=== PATIENT | male | born 1950 | race Caucasian/White ===

== ENCOUNTER → 2017-11-14 | Outpatient (CLI) | payer BC, OTHER ==
[~2017-11-14] MED LIST: ALPH300C PO; ASPEC81 PO; ATOR10TA82 PO; B COCAP3; BNC20 PO; BROM0.8T PO; CHOL20009 PO; CHRO500T4 PO; CINN1CAP2 PO; COEN1CAP7 PO; CRG625 PO; ECHI400C11 PO; EXEN0.048 SQ; FINA1TAB36 PO; FURO20TA PO; INSDGI SQ; INSU100I SQ; LORC1TAB PO; MAGNTAB4 PO; METF850T10 PO; OMEG10007 PO; RQP/5 PO; SPR25; ZINC30TA3 PO
--- NOTE | 2017-11-14 10:26 | DIAGNOSTIC IMAGING REPORT ---
LEFT THUMB 3 VIEWS HISTORY: LEFT THUMB MASSES COMPARISON: None. FINDINGS: No acute fracture or dislocation. Soft tissues are unremarkable. No radiopaque foreign bodies. A few periarticular ossific densities seen within the first MCP joint and interphalangeal joint of the thumb. This likely represents a combination of sesamoid bones and intra-articular loose bodies from old small fractures. IMPRESSION: A few periarticular ossific densities seen within the first MCP joint and interphalangeal joint of the thumb. This likely represents a combination of sesamoid bones and intra-articular loose bodies from old small fractures. Electronically signed by: Mark Cordova M.D. 11/14/2017 10:25 AM Dictated Date/Time: 11/14/2017 10:23 AM
== END | disposition home or self-care (01) ==
LOC: C.RDSM 17:19
PROVIDERS: ATTEND Family Medicine
DX: R22.9 Localized swelling, mass and lump, unspecified (principal)

== ENCOUNTER 2025-04-21 17:57 | Inpatient (IN) ==
--- NOTE | 2025-04-21 18:52 | Emergency Department Note ---
Impression & Plan Generalized weakness, COVID-19, Atrial fibrillation with rapid ventricular response ED Provider Note HISTORY OF PRESENT ILLNESS: Patient is a 74-year-old male presenting with generalized weakness. Patient reports he has been feeling generally unwell for the last 48 to 72 hours. He had an appoint with his primary care provider today and had a positive COVID test. Patient reports that he has had subjective chills at home with the weakness. Denies any abdominal pain, nausea or vomiting. Denies any chest pain or significant shortness of breath. Denies any cough. He reports some nasal congestion. He denies any recent falls but was so weak that he had to lower himself onto the ground and he called 911. Patient is on Eliquis. Denies any DVT or PE history. ROS: as above PHYSICAL EXAM: Constitutional: Patient appears in no acute distress. HENT: Head: Normocephalic and atraumatic. Eyes: EOMI, PERRL Mouth/Throat: Mucous membranes moist. Neck: Trachea midline. Neck supple. Cardiovascular: Tachycardic with irregularly irregular rhythm. No murmurs, rubs or gallops. Intact distal pulses. Pulmonary/Chest: No respiratory distress. Breath sounds clear and equal bilaterally. No wheezes or rales. Abdominal: Abdomen soft, no tenderness, rebound or guarding. Musculoskeletal: No edema, tenderness or deformity noted. Skin: Warm and dry. No rash, erythema, pallor or cyanosis Psychiatric: Appropriate mood and affect for situation. Neurological: Alert and keenly responsive. CN II-XII grossly intact, moving all extremities equally and fully. MDM: - Vitals signs showed tachypnea, tachycardia and fever. - History obtained via patient. History as above. - Chronic conditions affecting care: HTN; HLD; DM-2; Afib; NIEVES - Differential diagnoses include, but are not limited to: Pneumonia; viral syndrome; ACS; dysrhythmia; UTI - Order placed for continuous cardiac monitoring. At this time, monitor showed rate of 82 bpm with irregular rhythm, per my interpretation. - External medical records reviewed. Nephrology office visit note dated 03/29/2025 was reviewed. Patient follows in their clinic for his CKD. Baseline creatinine is 1.7-1.8. - EKG image interpreted by myself showed atrial fibrillation. Rate tachycardic at 151 bpm. QT 300. No acute ischemic changes. - Patient givne 20 mg IV cardizem in ER. Heart rate now in the 70s-80s irregular. - Laboratory workup interpreted by myself showed normal WBC; normal PT/INR; stable electrolytes; elevated total bilirubin (2.2); CKD (1.54); normal AST/ALT; normal lipase; normal troponin - Viral swab positive for COVID 19 - CXR image reviewed interpreted by myself is negative for pneumonia, per my interpretation. - Patient given 20 mg IV cardizem with improvement in heart rate. Given 1g IV tylenol for fever in ER. - Patient reports feeling significantly unwell and too weak at home. Likely secondary to his viral illness, as his heart rate is significantly improved. - Discussion was had with manager case about patient's case and need for admission - Hospitalist consulted for admission - [facility] ASSESSMENT AND PLAN: Diagnosis: COVID-19; A-fib with RVR; generalized weakness Plan: Admit Past Med/Surg History Problem List (Updated 04/22/25 @ 01:05 by Loni Syed MD) Atrial fibrillation with rapid ventricular response (Acute) COVID-19 (Acute) Generalized weakness (Acute) Elevated bilirubin Weakness COVID Lower urinary tract symptoms BPH with obstruction/lower urinary tract symptoms Loss of protective sensation of skin of foot Obesity, morbid, BMI 40.0-49.9 (Chronic) NIEVES on CPAP (Chronic) Diabetes type 2, uncontrolled (Chronic) Colon polyp (Chronic) Nocturia (Chronic) Intermittent atrial fibrillation follows with Dr Laura Elevated TSH (Chronic) no current medications - borderline Gender dysphoria in adult Diabetic nephropathy associated with type 2 diabetes mellitus (Chronic) Diabetic retinopathy associated with uncontrolled type 2 diabetes mellitus (Chronic) stable Vitamin D deficiency Stage 3b chronic kidney disease BPH (benign prostatic hyperplasia) (Chronic) Hypertension (Chronic) Hyperlipidemia (Chronic) Medical History Amblyopia, right eye History of gout Colon polyp Diabetes mellitus, type 2 IDDM Sleep apnea cpap Surgical History History of cataract surgery bilateral History of hand surgery finger fx Status post left foot surgery broken toe sx History of colonoscopy with polypectomy History of wisdom tooth extraction Family History Mother Family history of diabetes mellitus Other No family history of adverse response to anesthesia Social History Smoking Status: Former smoker Tobacco Type: Cigars Age Started Using Tobacco: 29; Age Quit Using Tobacco: 37; Second 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); Do You Dip or Chew Tobacco: No; Hx Alcohol Use: Yes Alcohol type: beer and wine Alcohol Intake Frequency: Monthly or Less Hx Substance Use: No Preferred Language: Tamaz[place] Communication Ability: Effective Visual Impairment: Limited Hearing Ability: Normal 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 Operator Required: No Beliefs That Will Affect Care: None marital status: Single Current Living Situation: Alone current occupational status: retired 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 Feels Safe at Home: Yes Diet: low carbohydrate and low salt Diet Comment: trying to watch salt and carbs caffeine: Yes (2 cups daily) Physical Activity Frequency: Does not Exercise Do you think of yourself as: straight/heterosexual Gender Identity: Male Assistive Devices: CPAP and Glasses Allergies Allergies Allergy/AdvReac Type Severity Reaction Status Date / Time Penicillins Allergy Intermediate "caused a Verified 04/21/25 20:34 lump in me where they injected it" liraglutide [From Saxenda] AdvReac Intermediate Nausea/vomi Verified 04/21/25 20:34 tting Home Meds Home Medications Medication Instructions Recorded Confirmed allopurinol 100 mg tablet 200 mg PO HS 08/31/19 04/21/25 allopurinol 300 mg tablet 300 mg PO QAM 08/31/19 04/21/25 alpha lipoic acid 300 mg capsule 300 mg PO BID 08/31/19 04/21/25 aspirin 81 mg tablet,delayed 81 mg PO Q2D 08/31/19 04/21/25 release (Ly Low Dose Aspirin) atorvastatin 10 mg tablet 10 mg PO HS 08/31/19 04/21/25 cinnamon bark 500 mg capsule 500 mg PO BID 08/31/19 04/21/25 (Cinnamon) coenzyme Q10 200 mg capsule (Co 200 mg PO BID 08/31/19 04/21/25 Q-10) spironolactone 25 mg tablet 12.5 mg PO QAM 08/31/19 04/21/25 magnesium chloride 64 mg 64 mg PO TID 05/18/20 04/21/25 (magnesium chloride) tablet,delayed release (Mag 64) zinc 22 mg tablet 22 mg PO QAM 05/18/20 04/21/25 chromium picolinate 500 mcg PO BID 09/12/20 04/21/25 colchicine 0.6 mg capsule 0.6 mg PO DAILY PRN gout flare up 10/24/20 04/21/25 sodium chloride 5 % eye drops 1 drp ophthalmic (eye) HS 01/23/21 04/21/25 (Mayito 128) olmesartan 5 mg tablet 5 mg PO QAM 02/22/23 04/21/25 psyllium husk 3.4 gram/5.4 gram 1 tbsp PO TID PRN ud 03/26/23 04/21/25 oral powder (Metamucil) estradiol 0.1 mg/24 hr semiweekly 1 patch transdermal 2XWK 07/31/24 04/21/25 transdermal patch cholecalciferol (vitamin D3) 125 125 mcg PO DAILY 04/21/25 04/21/25 mcg (5,000 unit) tablet (Vitamin D3) insulin lispro 100 unit/mL 0 sliding scale dose subcut TIDM 04/21/25 04/21/25 subcutaneous pen (Humalog KwikPen (U-100) Insulin) Previous Rx's Medication Instructions Recorded OneTouch Verio Reflect Meter #1 ea 02/22/23 (blood-glucose meter) apixaban 5 mg tablet (Eliquis) 5 mg PO BID #60 tabs 10/31/23 metoprolol tartrate 25 mg tablet 25 mg PO BID #60 tabs 10/31/23 blood sugar diagnostic (OneTouch #400 ea 12/02/23 Verio test strips) pen needle, diabetic 31 gauge x #500 ea 12/02/23 5/16" (BD Ultra-Fine Short Pen Needle) empagliflozin 25 mg tablet 25 mg PO QAM #90 tabs 05/26/24 insulin degludec 200 unit/mL (3 90 unit (0.45 mL) subcut HS #45 mL 06/29/24 mL) subcutaneous pen (Tresiba FlexTouch U-200 insulin) semaglutide 14 mg tablet (Rybelsus) 14 mg PO QAM #90 tabs 06/29/24 metformin 850 mg tablet 850 mg PO BID #180 tabs 08/17/24 finasteride 5 mg tablet 5 mg PO QAM #90 tabs 03/19/25 tamsulosin 0.4 mg capsule 0.4 mg PO QAM #90 caps 03/19/25 Results & Data (ED) Vital Signs Vital Signs - 24 hr 04/21/25 18:01 04/21/25 18:24 04/21/25 18:27 Temperature 38.0 C H Temperature Source Oral Pulse Rate 140 H 135 H Pulse Rate [Apical] Respiratory Rate 25 H Blood Pressure 140/63 Blood Pressure [Right Arm] Blood Pressure Mean 88 Blood Pressure Mean [Right Arm] Blood Pressure Position Semi-fowlers Pulse Oximetry 95 Oxygen Delivery Method Room Air Room Air Sepsis Recent Fever Within 48 Hours No Sepsis New/Unexplained Change in Mental Status No Sepsis Action Taken by Nursing Physician Notified 04/21/25 18:56 04/21/25 20:00 Temperature 37.3 C Temperature Source Oral Pulse Rate Pulse Rate [Apical] 80 114 H Respiratory Rate 18 18 Blood Pressure Blood Pressure [Right Arm] 135/76 128/73 Blood Pressure Mean Blood Pressure Mean [Right Arm] 95 91 Blood Pressure Position Pulse Oximetry 99 97 Oxygen Delivery Method Room Air Sepsis Recent Fever Within 48 Hours Sepsis New/Unexplained Change in Mental Status Sepsis Action Taken by Nursing Laboratory Data 04/21/25 18:19 04/21/25 18:19 Lab Results 04/21/25 Range/Units 18:19 WBC 8.98 (4.8-10.8) K/ul RBC 4.83 (4.70-6.10) M/uL Hgb 15.8 (14.0-18.0) g/dl Hct 43.6 (42.0-52.0) % MCV 90.3 (80.0-100.0) fL MCH 32.7 (25.0-34.0) pg MCHC 36.2 H (32.0-36.0) g/dL RDW Std Deviation 47.9 H (36.4-46.3) fL RDW Coeff of [place] 14.6 H (11.5-14.5) % Plt Count 221 (130-400) K/uL MPV 10.5 (9.4-12.4) fL Immature Gran % (Auto) 0.8 % Neut % (Auto) 85.1 % Lymph % (Auto) 2.1 % [place] % (Auto) 10.7 % Eos % (Auto) 0.6 % Baso % (Auto) 0.7 % Neut # (Auto) 7.65 H (1.40-6.50) K/uL Lymph # (Auto) 0.19 L (1.20-3.40) K/uL [place] # (Auto) 0.96 H (0.11-0.59) K/uL Eos # (Auto) 0.05 (0.00-0.50) K/uL Baso # (Auto) 0.06 (0.00-0.20) K/uL Immature Gran # (Auto) 0.07 (0.01-0.20) K/uL PT 11.4 (9.0-12.0) Seconds INR 1.1 (0.9-1.1) Sodium 140 (136-145) mmol/L Potassium 4.1 (3.5-5.1) mmol/L Chloride 107 (98-107) mmol/L Carbon Dioxide 21 (21-32) mmol/L Anion Gap 12 H (3-11) BUN 19 (6-23) mg/dl Creatinine 1.54 H (0.6-1.4) mg/dl Est Cr Clr Drug Dosing 57.0 ml/min eGFR 47.63 BUN/Creatinine Ratio 12.3 (10-20) Glucose 156 H (70-99(Fasting)) mg/dl Calcium 9.1 (8.6-10.3) mg/dl Total Bilirubin 2.2 H (0.2-1.0) mg/dl AST 17 (13-39) U/L ALT 17 (7-52) U/L Alkaline Phosphatase 67 (34-104) U/L Troponin I High Sens 16.3 (0-20) pg/ml Total Protein 7.2 (6.0-8.3) gm/dl Albumin 4.3 (3.4-5.0) gm/dl Globulin 2.9 (2.5-4.0) gm/dl Albumin/Globulin Ratio 1.5 (0.9-2) Lipase 12 (11-82) U/L SARS-CoV-2 (PCR) POSITIVE A (Negative) Influenza Type A (PCR) Negative (Neg) Influenza Type B (PCR) Negative (Neg) RSV (RT-PCR) Negative (Neg) Administered Medications Discontinued Medications Diltiazem HCl (Diltiazem Hcl 5 Mg/Ml 5 Ml Vial) 20 mg IV NOW STA Stop: 04/21/25 18:31 Last Admin: 04/21/25 18:45 Dose: 20 mg Documented By: MARIN Co-signed By: TDBasilia Acetaminophen (Ofirmev) 1,000 mg in 100 mls @ 400 mls/hr IV NOW STA Stop: 04/21/25 19:04 Last Infusion: 04/21/25 19:19 Dose: Infused Documented By: Admin: 04/21/25 19:00 Dose: 400 mls/hr Documented By: MAIRN Imaging Data Radiologist's Impression: Chest X-Ray 04/21/25 18:24 Clinical History: Chest pain Technique: 2 frontal views of the chest were obtained Findings: There are no confluent pulmonary infiltrates. The heart size is within normal limits. No pleural effusion or pneumothorax is seen. There is no definite pulmonary nodule. No fracture is noted. No foreign body is seen Impression: No active disease Electronically signed by Tommy Giang 04-21-2025 7:34 PM Discharge Plan Visit Data Chief Complaint: Illness Stated Complaint: COVID + ED Provider: Loin Syed Discharge Problem: Generalized weakness, COVID-19, Atrial fibrillation with rapid ventricular response Condition: Fair
[2025-04-21] MEDS: ACETAMINOPHEN 1,000 MG/100 ML VIAL IV STA (19:00)
[2025-04-21 19:02] LABS: Hematocrit (blood only) 43.6 % (42.0-52.0); Hemoglobin 15.8 g/dl (14.0-18.0); Immature Granulocytes # (auto) 0.07 K/uL (0.01-0.20); Immature Granulocytes % (auto) 0.8 %; Mean Corpuscular Hemoglobin 32.7 pg (25.0-34.0); Mean Corpuscular Volume 90.3 fL (80.0-100.0); Platelet Count 221 K/uL (130-400); RDW Standard Deviation 47.9 fL (36.4-46.3); Red Blood Count 4.83 M/uL (4.70-6.10); White Blood Count 8.98 K/ul (4.8-10.8)
[2025-04-21 19:24] LABS: Alanine Aminotransferase 17.0 U/L (7-52); Albumin Globulin Ratio 1.5 (0.9-2); Albumin Level 4.3 gm/dl (3.4-5.0); Alkaline Phosphatase 67.0 U/L (34-104); Anion Gap 12.0 (3-11); Bilirubin,Total 2.2 mg/dl (0.2-1.0); Blood Urea Nitrogen 19.0 mg/dl (6-23); Calcium 9.1 mg/dl (8.6-10.3); Carbon Dioxide 21.0 mmol/L (21-32); Chloride 107.0 mmol/L (98-107); Creatinine Clr Calc Pharmacy 57.0 ml/min; Globulin 2.9 gm/dl (2.5-4.0); Glucose 156.0 mg/dl (70-99(Fasting)); Lipase 12.0 U/L (11-82); Potassium 4.1 mmol/L (3.5-5.1); Sodium 140.0 mmol/L (136-145); Total Protein 7.2 gm/dl (6.0-8.3)
--- NOTE | 2025-04-21 19:34 | XRay Report ---
Clinical History: Chest pain Technique: 2 frontal views of the chest were obtained Findings: There are no confluent pulmonary infiltrates. The heart size is within normal limits. No pleural effusion or pneumothorax is seen. There is no definite pulmonary nodule. No fracture is noted. No foreign body is seen Impression: No active disease Electronically signed by Tommy Giang 04-21-2025 7:34 PM
[2025-04-21 19:40] LABS: INR 1.1 (0.9-1.1); Prothrombin Time 11.4 Seconds (9.0-12.0)
[2025-04-21 19:44] LABS: Influenza A virus by PCR Negative (Neg); Influenza B virus by PCR Negative (Neg); SARS CoV2 RNA(COVID-19) Ceph POSITIVE (Negative)
--- NOTE | 2025-04-21 20:58 | History & Physical Report ---
Date of Service April 21, 2025 Assessment & Plan (1) COVID: (2) Weakness: (3) Elevated bilirubin: (4) Diabetes mellitus, type 2: Plan 74-year-old male PMHx HTN, HLD, BPH, CKD stage IIIb, vitamin D deficiency, T2DM, intermittent A-fib, and NIEVES on CPAP presenting for weakness. ED course reveals overall stable labs with slight AG 12, creatinine 1.54, glucose 156 and bilirubin 2.2. He is COVID-positive. CXR is without acute findings. #COVID/Weakness COVID 19 diagnosed on admission. No hypoxia, no wheezing. Pt overall feels too weak to go home, was unable to get himself up by himself the day of arrival due to weakness. Suspect weakness 2/2 COVID infection. Possible exposure at [employer]. Has had 4 COVID vaccines total. - CBC overall WNL; CMP AG 12, Cr 1.54, bili 2.2 - BMP am - CXR no acute findings - IS q1hr - No O2 at baseline, CPAP HS; O2 prn - wean as tolerated (if needed) - Fall precautions, COVID precautions - DuoNebs [facility] - PT/OT ordered - appreciate assistance #Afib w/ RVR H/o Afib, on Eliquis and metoprolol; Likely 2/2 presence of illness. Received Cardizem 20mg IV in ED and converted to NSR, rate controlled at time of admission. - CBC stable, CMP Cr 1.54, TSH pending - EKG Afib @ 151 bpm initially; rate now 70s-80s - Continue home meds - Eliquis, metoprolol - Monitor on tele #Elevated bilirubin No abdominal pain. - Bilirubin 2.2, AST/ALT/Alk phos WNL - No recent N/V - Repeat am #T2DM H/o DMT2; At home regimen includes Jardiance, degludec 90U HS, lispro SSI, metformin, semaglutide - Glucose on admission 156; Most recent A1C 01/2025 @ 7.3% - Hold home regimen - SSI with target BSG range 110-160mg/dL, CF 25, carb ratio 5 - Lantus 30U BID - BSG ACHS - Adjust regimen as needed #Gout- Allopurinol - continue #HLD- Atorvastatin - continue #BPH- Finasteride, tamsulosin - continue #HTN- Spironolactone, olmesartan on hold - continue #NIEVES- CPAP HS Dispo: Obs, med/tele VTE prophylaxis: On Eliquis - continue This document was dictated utilizing [employer]. Please excuse any gra mmatical errors that may be secondary to use of this software. Admission and Anticipated Discharge Date Admission Date: 04/21/2025 History of Present Illness Chief Complaint: Weakness Primary Care Provider: Adriana Mathis 74-year-old male PMHx HTN, HLD, BPH, CKD stage IIIb, vitamin D deficiency, T2DM, intermittent A-fib, and NIEVES on CPAP presenting for weakness. Patient states that the night [employer] he started to develop chills but no documented fever. He was seen by his PCP on the day of arrival and tested positive for COVID. His PCP had encouraged him to come to the ED if he started to feel worse. Patient states that he, later in the day, did start to feel worse in terms of his symptoms and states that it was so bad that he could not get out of bed or out of his chair by himself. At 1 point he had felt that he may fall over and have to fell/lowered himself to the ground and was unable to get himself back up. He called EMS who came to help assist the patient. When asked why he lowered himself to the ground, he denies feeling lightheaded or dizzy, just stating that he "ran out of power." He has had a nonproductive cough for the past 1 to 2 d ays [employer], denies additional URI symptoms. Again denies fevers. Is not short of breath. Denies chest pain, palpitations, abdominal pain, N/V/D/C, numbness/tingling, LUTS, or syncope. Patient does not use oxygen at baseline, but does utilize CPAP at night. He states that he may have possibly been exposed to COVID at [employer]. He does not have a history of documented COVID infection. He has received 4 COVID vaccines in total. ED evaluation reveals CBC without leukocytosis, stable H&H; PT/NR WNL; CMP anion gap 12, creatinine 1.54, glucose 156, bilirubin 2.2; troponin 16.3; lipase 12; COVID-positive, flu/RSV negative; CXR no active disease.; Patient received diltiazem 20 mg IV and acetaminophen 1 g IV in ED. Please see Dr. Alonzo's attestation for adjustments/additions to treatment plan. Allergies Allergy/AdvReac Type Severity Reaction Status Date / Time Penicillins Allergy Intermediate "caused a Verified 04/21/25 20:34 lump in me where they injected it" liraglutide [From Saxenda] AdvReac Intermediate Nausea/vomi Verified 04/21/25 20:34 tting Home Medications Medication Instructions Recorded Confirmed Type allopurinol 100 mg tablet 200 mg PO HS 08/31/19 04/21/25 History allopurinol 300 mg tablet 300 mg PO QAM 08/31/19 04/21/25 History alpha lipoic acid 300 mg capsule 300 mg PO BID 08/31/19 04/21/25 History aspirin 81 mg tablet,delayed 81 mg PO Q2D 08/31/19 04/21/25 History release (Ly Low Dose Aspirin) atorvastatin 10 mg tablet 10 mg PO HS 08/31/19 04/21/25 History cinnamon bark 500 mg capsule 500 mg PO BID 08/31/19 04/21/25 History (Cinnamon) coenzyme Q10 200 mg capsule (Co 200 mg PO BID 08/31/19 04/21/25 History Q-10) spironolactone 25 mg tablet 12.5 mg PO QAM 08/31/19 04/21/25 History magnesium chloride 64 mg 64 mg PO TID 05/18/20 04/21/25 History (magnesium chloride) tablet,delayed release (Mag 64) zinc 22 mg tablet 22 mg PO QAM 05/18/20 04/21/25 History chromium picolinate 500 mcg PO BID 09/12/20 04/21/25 History colchicine 0.6 mg capsule 0.6 mg PO DAILY PRN gout flare up 10/24/20 04/21/25 History sodium chloride 5 % eye drops 1 drp ophthalmic (eye) HS 01/23/21 04/21/25 History (Mayito 128) OneTouch Verio Reflect Meter #1 ea 02/22/23 03/29/25 Rx (blood-glucose meter) olmesartan 5 mg tablet 5 mg PO QAM 02/22/23 04/21/25 History psyllium husk 3.4 gram/5.4 gram 1 tbsp PO TID PRN ud 03/26/23 04/21/25 History oral powder (Metamucil) apixaban 5 mg tablet (Eliquis) 5 mg PO BID #60 tabs 10/31/23 04/21/25 Rx metoprolol tartrate 25 mg tablet 25 mg PO BID #60 tabs 10/31/23 04/21/25 Rx blood sugar diagnostic (OneTouch #400 ea 12/02/23 03/29/25 Rx Verio test strips) pen needle, diabetic 31 gauge x #500 ea 12/02/23 03/29/25 Rx 5/16" (BD Ultra-Fine Short Pen Needle) empagliflozin 25 mg tablet 25 mg PO QAM #90 tabs 05/26/24 04/21/25 Rx insulin degludec 200 unit/mL (3 90 unit (0.45 mL) subcut HS #45 mL 06/29/24 04/21/25 Rx mL) subcutaneous pen (Tresiba FlexTouch U-200 insulin) semaglutide 14 mg tablet (Rybelsus) 14 mg PO QAM #90 tabs 06/29/24 04/21/25 Rx estradiol 0.1 mg/24 hr semiweekly 1 patch transdermal 2XWK 07/31/24 04/21/25 History transdermal patch metformin 850 mg tablet 850 mg PO BID #180 tabs 08/17/24 04/21/25 Rx finasteride 5 mg tablet 5 mg PO QAM #90 tabs 03/19/25 04/21/25 Rx tamsulosin 0.4 mg capsule 0.4 mg PO QAM #90 caps 03/19/25 04/21/25 Rx cholecalciferol (vitamin D3) 125 125 mcg PO DAILY 04/21/25 04/21/25 History mcg (5,000 unit) tablet (Vitamin D3) insulin lispro 100 unit/mL 0 sliding scale dose subcut TIDM 04/21/25 04/21/25 History subcutaneous pen (Humalog KwikPen (U-100) Insulin) Past Med/Surg History Problem List (Updated 04/22/25 @ 01:05 by Loni Syed MD) Atrial fibrillation with rapid ventricular response (Acute) COVID-19 (Acute) Generalized weakness (Acute) Elevated bilirubin Weakness COVID Lower urinary tract symptoms BPH with obstruction/lower urinary tract symptoms Loss of protective sensation of skin of foot Obesity, morbid, BMI 40.0-49.9 (Chronic) NIEVES on CPAP (Chronic) Diabetes type 2, uncontrolled (Chronic) Colon polyp (Chronic) Nocturia (Chronic) Intermittent atrial fibrillation follows with Dr Laura Elevated TSH (Chronic) no current medications - borderline Gender dysphoria in adult Diabetic nephropathy associated with type 2 diabetes mellitus (Chronic) Diabetic retinopathy associated with uncontrolled type 2 diabetes mellitus (Chronic) stable Vitamin D deficiency Stage 3b chronic kidney disease BPH (benign prostatic hyperplasia) (Chronic) Hypertension (Chronic) Hyperlipidemia (Chronic) Medical History Amblyopia, right eye History of gout Colon polyp Diabetes mellitus, type 2 IDDM Sleep apnea cpap Surgical History History of cataract surgery bilateral History of hand surgery finger fx Status post left foot surgery broken toe sx History of colonoscopy with polypectomy History of wisdom tooth extraction Family History Mother Family history of diabetes mellitus Other No family history of adverse response to anesthesia Social History Smoking Status: Never smoker Tobacco Type: Cigars Age Started Using Tobacco: 29; Age Quit Using Tobacco: 37; Second 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); Do You Dip or Chew Tobacco: No; Hx Alcohol Use: No Hx Substance Use: No Preferred Language: Cymro Communication Ability: Effective Visual Impairment: Limited Hearing Ability: Normal International Organizer Required: No Beliefs That Will Affect Care: None marital status: Single Current Living Situation: Alone Current Living Situation Comment: lives in home alone current occupational status: retired 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 Other Information That Helps Us Care for You: No Feels Safe at Home: Yes Safety Concerns: Feels Safe At This Time Diet: low carbohydrate and low salt Diet Comment: trying to watch salt and carbs caffeine: Yes (2 cups daily) Physical Activity Frequency: Does not Exercise Do you think of yourself as: straight/heterosexual Gender Identity: Male Assistive Devices: Glasses Review of Systems Review of Systems: All systems reviewed & are unremarkable except as noted in Subjective Physical Exam Physical Exam: General: No acute distress Skin: Warm and dry Head: Normocephalic, atraumatic Eyes: PERRL, conjunctivae clear, sclera non-icteric ENT: External ear and ear canal without swelling; nose atraumatic; good dentition, tongue normal appearance, pharynx normal Neck: Supple, no LAD Cardio: Irregular irregular rhythm, regular rate, no M/G/R, S1 and S2 normal Resp: Dry cough, no respiratory distress, Lungs CTA in all lobes bilaterally, no wheezes, rales, or rhonchi Abdomen: Soft, symmetric, nontender; No masses or hepatosplenomegaly; Bowel sounds normoactive MSK: No deformities; pulses palpable and equal; no edema. Neuro: Awake, alert; Sensation intact bilaterally; CN grossly intact Psych: Appropriate mood and affect; good judgement and insight. Results & Data Results & Data Vital Signs (Past 12 Hours) Vital Signs Temp Pulse Pulse Resp BP BP Pulse Ox 04/21/25 18:56 80 18 135/76 99 04/21/25 18:27 135 H 04/21/25 18:24 04/21/25 18:01 38.0 C H 140 H 25 H 140/63 95 O2 Del Method 04/21/25 18:56 04/21/25 18:27 04/21/25 18:24 Room Air 04/21/25 18:01 Room Air Laboratory Results 04/21/25 18:19 WBC 8.98 RBC 4.83 Hgb 15.8 Hct 43.6 MCV 90.3 MCH 32.7 MCHC 36.2 H RDW Std Deviation 47.9 H RDW Coeff of Jordan 14.6 H Plt Count 221 MPV 10.5 Immature Gran % (Auto) 0.8 Neut % (Auto) 85.1 Lymph % (Auto) 2.1 Morgan % (Auto) 10.7 Eos % (Auto) 0.6 Baso % (Auto) 0.7 Neut # (Auto) 7.65 H Lymph # (Auto) 0.19 L Morgan # (Auto) 0.96 H Eos # (Auto) 0.05 Baso # (Auto) 0.06 Immature Gran # (Auto) 0.07 PT 11.4 INR 1.1 Sodium 140 Potassium 4.1 Chloride 107 Carbon Dioxide 21 Anion Gap 12 H BUN 19 Creatinine 1.54 H Est Cr Clr Drug Dosing 57.0 eGFR 47.63 BUN/Creatinine Ratio 12.3 Glucose 156 H Calcium 9.1 Total Bilirubin 2.2 H AST 17 ALT 17 Alkaline Phosphatase 67 Troponin I High Sens 16.3 Total Protein 7.2 Albumin 4.3 Globulin 2.9 Albumin/Globulin Ratio 1.5 Lipase 12 SARS-CoV-2 (PCR) POSITIVE A Influenza Type A (PCR) Negative Influenza Type B (PCR) Negative RSV (RT-PCR) Negative Diagnostic Findings Chest X-Ray 04/21/25 18:24 Clinical History: Chest pain Technique: 2 frontal views of the chest were obtained Findings: There are no confluent pulmonary infiltrates. The heart size is within normal limits. No pleural effusion or pneumothorax is seen. There is no definite pulmonary nodule. No fracture is noted. No foreign body is seen Impression: No active disease Electronically signed by Tommy Giang 04-21-2025 7:34 PM Medications Administered Diltiazem 20 mg IV Acetaminophen 1g IV ECG Additional Comments: A-fib with RVR, LAD, low voltage QRS 151 bpm, QRS 68, QT/QTc 300/475, PRT*/-89/5 Code Status & VTE Plan Code Status Full Supervising Physician Co-Signing Physician Notes patient seen examined, chart reviewed, case discussed with LOVELY Felipe I agree with assessment and plan as documented above. Patient with COVID-19 infection. Generalized weakness. Is not hypoxic. Nontoxic States that he is too weak to go home and is unable to get himself up Assessment/plan Supportive care. As patient is not hypoxic there is no indication for management with steroids or antivirals Remainder as above PG Care Time/CCT Total # of Minutes Spent Total Time Spent with Patient: Total time spent is greater than 50% in coordination of care (as documented) at patient's floor/unit and/or counseling patient: Coding Level of Care Code 64048 INT INP/OBS CARE 3/75MIN Diagnoses COVID U07.1 Weakness R53.1 Elevated bilirubin R17 Diabetes mellitus, type 2 E11.9
[2025-04-22] MEDS ORDERED: MAGNESIUM HYDROXIDE SUSP 30 ML UDC PO PRN (00:52)
[2025-04-22] MEDS ORDERED: CARBOHYDRATES FOR HYPOGLYCEMIA PO PRN (00:52)
[2025-04-22] MEDS ORDERED: ONDANSETRON INJ 2 MG/ML 2 ML VIAL IV PRN (00:52)
[2025-04-22] MEDS ORDERED: POLYETHYLENE (MIRALAX) 17 GM PACK PO PRN (00:52)
[2025-04-22] MEDS ORDERED: GLUCAGON FOR INJ 1 MG VIAL SQ PRN (00:52)
[2025-04-22] MEDS ORDERED: DEXTROSE 50% 50 ML SYRINGE IV PRN (00:52)
[2025-04-22] MEDS ORDERED: MELATONIN 3 MG TAB PO PRN (00:52)
[2025-04-22] MEDS ORDERED: GLUCOSE 40% GEL 15 GM TUBE PO PRN (00:52)
[2025-04-22] MEDS ORDERED: GLUCOSE 10 TAB/TUBE PO PRN (00:52)
[2025-04-22] MEDS: ALBUT/IPRATROP 3MG/0.5MG NEB 3 ML VIAL NEB SCH ×2 (01:13→05:40)
[2025-04-22] MEDS ORDERED: PSYLLIUM HUSK 4GM PACKET PO PRN (01:17)
--- NOTE | 2025-04-22 06:55 | Hospitalist Progress Note ---
Date of Service April 22, 2025 Assessment & Plan (1) Weakness: (2) Elevated bilirubin: (3) Diabetes mellitus, type 2: Plan 74-year-old male PMHx HTN, HLD, BPH, CKD stage IIIb, vitamin D deficiency, T2DM, intermittent A-fib, and NIEVES on CPAP presenting for weakness. ED course reveals overall stable labs with slight AG 12, creatinine 1.54, glucose 156 and bilirubin 2.2. He is COVID-positive. CXR is without acute findings. #COVID/Weakness COVID 19 diagnosed on admission. CXR no acute findings. No hypoxia, wheezing, or required supplemental O2 use. Continues feeling weak and hesitant to get out of bed. - IS q1hr - No O2 at baseline, CPAP HS - Fall precautions, COVID precautions - DuoNebs prn - PT/OT ordered - awaiting recommendations #Afib w/ RVR H/o Afib, on Eliquis and metoprolol; Likely 2/2 presence of illness. Received Cardizem 20mg IV in ED and rate was controlled, but remained in a-fib. HR rising to 120's this morning prior to taking metoprolol. - Continue home meds - Eliquis, metoprolol - Monitor on tele - Consider Cardizem if rate remains uncontrolled #Elevated bilirubin Continues to deny abdominal pain. Past labs dating back to 10/2023 show elevated total bilirubin in 1.3-1.6 range. - Bilirubin remains 2.2 - AST/ALT/Alk phos continues WNL - No recent N/V #T2DM H/o DMT2; At home regimen includes Jardiance, degludec 90U HS, lispro SSI, metformin, semaglutide. LAst a1c was 7.3% on 01/2025. No steroids are indicated at this time for COVID infection. BSG has been below 200 without hypoglycemic events. - Continue SSI with target BSG range 110-160mg/dL, CF 25, carb ratio 5 - Continue Lantus 30U BID - BSG ACHS - Adjust regimen as needed - Can resume home regimen upon DC #Gout- Allopurinol - continue #HLD- Atorvastatin - continue #BPH- Finasteride, tamsulosin - continue #HTN- Spironolactone, olmesartan on hold - continue #NIEVES- CPAP HS Dispo: Obs, med/tele VTE prophylaxis: On Eliquis - continue Admission and Anticipated Discharge Date Admission Date: April 21, 2025 Supervising Physician Co-Signing Physician Notes Attending attestation Pt seen and examined in concert with Dr. Simpson. In agreement with the documented findings as noted in the resident documentation with any exceptions or additions as noted here. Resting in bed, reporting improvement in presenting cough, shortness of breath and fatigue. Engaged with rehab services. 74-year-old male PMHx HTN, HLD, BPH, CKD stage IIIb, vitamin D deficiency, T2DM, intermittent A-fib, and NIEVES on CPAP presenting for weakness. ED course reveals overall stable labs with slight AG 12, creatinine 1.54, glucose 156 and bilirubin 2.2. He is COVID-positive. CXR is without acute findings. Diffuse weakness in the setting of COVID-19 infection - PT/OT consult appreciated - rec'd rehab due to need for improved functional outcome with capacity for more intensive therapy. Would benefit from setting where physician oversight could re-assess for sequlae of COVID, if develop. AF w/ RVR - rate controlled. Continue metoprolol, apixaban and monitor Else see resident documentation as noted. Subjective No acute events over night. This morning, pt reports they are feeling abou the same as yesterday, remains feeling weak, has a headache, and dry cough. Denies CP, SOB, congestions, nasal drainage, abdominal pain, N/V/D, or dizziness. Review of Systems Review of Systems: As per HPI Physical Exam Physical Exam: Gen: NAD HENT: Normocephalic, atraumatic. Trachea midline, no thyromegaly Cardio: A-fib, tachycardiac, no murmurs or clicks. Resp: CTAB, Equal bilateral chest rise, no increased work of breathing GI: Non distended, soft, non tender, normoactive bowel sounds MSK: Moving all 4 extremities independently Skin: Dry, of normal skin tone, Neuro: A& O x 3, normal affect Results & Data Results & Data Vital Signs (Past 12 Hours) Vital Signs Temp Pulse Pulse Pulse Resp BP Pulse Ox 04/22/25 03:12 36.9 C 75 18 141/80 H 97 04/22/25 01:11 04/22/25 01:11 37.3 C 76 18 146/82 H 100 04/22/25 00:52 37.3 C 76 18 146/82 H 100 04/22/25 00:52 04/22/25 00:40 84 04/21/25 22:32 82 04/21/25 22:00 86 18 151/92 H 95 04/21/25 20:00 37.3 C 114 H 18 128/73 97 04/21/25 18:56 80 18 135/76 99 Pulse Ox O2 Del Method O2 Del Method 04/22/25 03:12 Room Air 04/22/25 01:11 Room Air 04/22/25 01:11 Room Air 04/22/25 00:52 Room Air 04/22/25 00:52 100 Room Air 04/22/25 00:40 04/21/25 22:32 04/21/25 22:00 Room Air 04/21/25 20:00 Room Air 04/21/25 18:56 Resident Activity Tracking Resident Involvement: Resident Care Provided Care Provided: Adult Hospital Medicine
[2025-04-22 07:23] LABS: Alanine Aminotransferase 13.0 U/L (7-52); Albumin Level 3.8 gm/dl (3.4-5.0); Alkaline Phosphatase 52.0 U/L (34-104); Anion Gap 7.0 (3-11); Bilirubin,Total 2.2 mg/dl (0.2-1.0); Blood Urea Nitrogen 20.0 mg/dl (6-23); Calcium 8.6 mg/dl (8.6-10.3); Carbon Dioxide 24.0 mmol/L (21-32); Chloride 108.0 mmol/L (98-107); Creatinine Clr Calc Pharmacy 63.6 ml/min; Glucose 138.0 mg/dl (70-99(Fasting)); Potassium 4.3 mmol/L (3.5-5.1); Sodium 139.0 mmol/L (136-145); Total Protein 6.1 gm/dl (6.0-8.3)
[2025-04-22 07:37] LABS: Thyroid Stimulating Hormone 2.266 uIu/ml (0.300-4.500)
[2025-04-22] MEDS: TAMSULOSIN HCL 0.4 MG CAP PO SCH (08:13)
[2025-04-22] MEDS: MAGNESIUM CHLORIDE W/CALCIUM 64MG DELAYED REL TAB PO SCH (08:13)
[2025-04-22] MEDS: METOPROLOL TARTRATE 25 MG TAB PO SCH (08:13)
[2025-04-22] MEDS: ASPIRIN 81 MG ECTAB PO SCH (08:15)
[2025-04-22] MEDS: FINASTERIDE 5 MG TAB PO SCH (08:16)
[2025-04-22] MEDS: APIXABAN 5 MG TABLET PO SCH (08:16)
[2025-04-22] MEDS: CHOLECALCIFEROL 125 MCG (5,000 UNITS) TAB PO SCH (08:16)
[2025-04-22] MEDS: SPIRONOLACTONE 12.5 MG TAB PO SCH (08:16)
[2025-04-22] MEDS ORDERED: ALBUT/IPRATROP 3MG/0.5MG NEB 3 ML VIAL NEB PRN (09:37)
[2025-04-22 09:41] LABS: Hematocrit (blood only) 39.9 % (42.0-52.0); Hemoglobin 13.6 g/dl (14.0-18.0); Mean Corpuscular Hemoglobin 31.3 pg (25.0-34.0); Mean Corpuscular Volume 91.7 fL (80.0-100.0); Platelet Count 166 K/uL (130-400); RDW Standard Deviation 48.7 fL (36.4-46.3); Red Blood Count 4.35 M/uL (4.70-6.10); White Blood Count 6.29 K/ul (4.8-10.8)
[2025-04-22] MEDS: LANTUS PER UNIT CHARGE SQ SCH (09:47)
[2025-04-22] MEDS: INSULIN ASPART PER UNIT CHARGE SC SCH (09:48)
--- NOTE | 2025-04-22 18:20 | Electrocardiogram Report ---
Test Reason : Blood Pressure : */* mmHG Vent. Rate : 151 BPM Atrial Rate : * BPM P-R Int : * ms QRS Dur : 68 ms QT Int : 300 ms P-R-T Axes : * -89 5 degrees QTcB Int : 475 ms Atrial fibrillation with rapid ventricular response Left axis deviation Low voltage QRS Possible Lateral infarct , age undetermined Abnormal ECG Confirmed by Gee Schwartz ([id number]) on 04/22/2025 6:19:49 PM Referred By: Adriana Mathis Confirmed By: Gee Schwartz
[2025-04-22] MEDS ORDERED: Nursing to Pharmacy Communication SCH (19:15)
[2025-04-22] MEDS: ACETAMINOPHEN 325 MG TAB PO PRN (19:46)
[2025-04-22] MEDS: ESTRADIOL 0.1 MG/24hrs TDSY TD SCH (20:52)
[2025-04-22] MEDS: ATORVASTATIN 10 MG TAB PO SCH (20:52)
[2025-04-22] MEDS: SODIUM CHLORIDE 5% OP SOLN 15 ML BTL OP SCH (20:53)
[2025-04-22] MEDS: [UNRECOGNIZED DRUG - OTHER] SCH (20:53)
[2025-04-23 06:50] LABS: Hematocrit (blood only) 41.7 % (42.0-52.0); Hemoglobin 14.1 g/dl (14.0-18.0); Mean Corpuscular Hemoglobin 31.5 pg (25.0-34.0); Mean Corpuscular Volume 93.1 fL (80.0-100.0); Platelet Count 157 K/uL (130-400); RDW Standard Deviation 48.9 fL (36.4-46.3); Red Blood Count 4.48 M/uL (4.70-6.10); White Blood Count 5.56 K/ul (4.8-10.8)
--- NOTE | 2025-04-23 06:53 | Hospitalist Progress Note ---
Date of Service April 23, 2025 Assessment & Plan (1) Weakness: (2) Elevated bilirubin: (3) Diabetes mellitus, type 2: Plan 74-year-old male PMHx HTN, HLD, BPH, CKD stage IIIb, vitamin D deficiency, T2DM, intermittent A-fib, and NIEVES on CPAP admitted for weakness/deconditioning in setting of COVID infection. CXR is without acute findings. #COVID/Weakness COVID 19 diagnosed on admission. CXR no acute findings. No hypoxia, wheezing, or required supplemental O2 use. Continues noting some improvement today, but does not feel he can care for himself at home at this time. - IS q1hr - No O2 at baseline, CPAP HS - Fall precautions, COVID precautions - DuoNebs prn - PT/OT ordered - Recommended acute rehab on 04/22/25 - CM working on placement, likely SNF #Afib w/ RVR H/o Afib, on Eliquis and metoprolol; Likely 2/2 presence of illness. Received Cardizem 20mg IV in ED and rate was controlled, but remained in a-fib. HR currently in 70-80s. - Continue home meds - Eliquis, metoprolol - Monitor on tele - Consider Cardizem if rate becomes uncontrolled #Elevated bilirubin Continues to deny abdominal pain. Past labs dating back to 10/2023 show elevated total bilirubin in 1.3-1.6 range. - Bilirubin at 2.2 on 04/22 - AST/ALT/Alk phos continues WNL - No recent N/V - Will recheck bili on 04/24 #T2DM H/o DMT2; At home regimen includes Jardiance, degludec 90U HS, lispro SSI, metformin, semaglutide. LAst a1c was 7.3% on 01/2025. No steroids are indicated at this time for COVID infection. BSG has been below 200 without hypoglycemic events. - Continue SSI with target BSG range 105-140mg/dL, CF 25, carb ratio 5 - Continue Lantus 30U BID - BSG ACHS - Adjust regimen as needed - Can resume home regimen upon DC #CKD III - Cr elevated to 1.49 from 1.38 yesterday - Baseline Cr 1.7-1.8 per nephrology on 03/29/25 - Will encourage PO fluids - If Cr continue to rise above baseline, will consider IVF #Gout- Allopurinol - continue #HLD- Atorvastatin - continue #BPH- Finasteride, tamsulosin - continue #HTN- Spironolactone, olmesartan on hold - continue #NIEVES- CPAP HS Dispo: Obs, med/tele VTE prophylaxis: On Eliquis - continue Admission and Anticipated Discharge Date Admission Date: April 21, 2025 Supervising Physician Co-Signing Physician Notes ATTESTATION I also saw the patient and confirmed ross portions of the history and exam. I agree with the impression and plan in the resident documentation, and as summarized below. Upon our midmorning exam, the patient is seated in the bed side chair. He reports feeling improved compared to yesterday. Does have a cough, which is a little increased compared to yesterday. No difficulty breathing. His weakness is improved today. EXAM Vital signs stable. On room air when not on the CPAP Coughs occasionally. Able to speak in full and complete sentences without pause DATA Labs CBC unremarkable BUN 26, creatinine 1.49 IMPRESSION & PLAN COVID Weakness, improving A-fib with rapid ventricular response upon admission, now resolved PT had initially recommended inpatient rehabilitation, either with his improvement today, may not be needed if he continues to improve over the next 24-48 hours Continue supportive care; PT hospitalized Will reassess in the a.m. Additional per resident documentation Subjective No acute events over night. This morning, pt report is examed sitting up in chair. They note improvement since yesterday in terms of strength and endurance. Continues with dry cough and noting onset of nasal drainage and congestion. Denies CP, SOB, abdominal pain, N/V/D, or dizziness. Review of Systems Review of Systems: As per HPI Physical Exam Physical Exam: Gen: NAD HENT: Normocephalic, atraumatic. Trachea midline, no thyromegaly. Coughing during exam Cardio: A-fib, normal rate no murmurs or clicks. Resp: CTAB, Equal bilateral chest rise, no increased work of breathing GI: Non distended, soft, non tender, normoactive bowel sounds MSK: Moving all 4 extremities independently Skin: Dry, of normal skin tone Neuro: A& O x 3, normal affect Results & Data Results & Data Vital Signs (Past 12 Hours) Vital Signs Temp Pulse Pulse Resp BP Pulse Ox Pulse Ox 04/23/25 03:48 36.8 C 79 18 135/79 98 04/23/25 02:41 72 17 96 04/23/25 00:52 96 04/22/25 23:25 36.8 C 78 18 109/68 99 04/22/25 22:27 70 22 93 04/22/25 22:14 04/22/25 21:58 71 04/22/25 21:01 37.4 C 04/22/25 19:20 38.4 C H 68 18 131/83 92 O2 Del Method O2 Del Method 04/23/25 03:48 CPAP 04/23/25 02:41 04/23/25 00:52 CPAP 04/22/25 23:25 CPAP 04/22/25 22:27 04/22/25 22:14 Room Air 04/22/25 21:58 04/22/25 21:01 04/22/25 19:20 Room Air Resident Activity Tracking Resident Involvement: Resident Care Provided Care Provided: Adult Hospital Medicine
[2025-04-23 06:57] LABS: Anion Gap 8.0 (3-11); Blood Urea Nitrogen 26.0 mg/dl (6-23); Calcium 8.6 mg/dl (8.6-10.3); Carbon Dioxide 25.0 mmol/L (21-32); Chloride 106.0 mmol/L (98-107); Creatinine Clr Calc Pharmacy 57.7 ml/min; Glucose 94.0 mg/dl (70-99(Fasting)); Potassium 4.0 mmol/L (3.5-5.1); Sodium 139.0 mmol/L (136-145)
--- NOTE | 2025-04-24 07:22 | Hospitalist Progress Note ---
Date of Service April 24, 2025 Assessment & Plan (1) Weakness: (2) Elevated bilirubin: (3) Diabetes mellitus, type 2: Plan 74-year-old male PMHx HTN, HLD, BPH, CKD stage IIIb, vitamin D deficiency, T2DM, intermittent A-fib, and NIEVES on CPAP admitted for weakness/deconditioning in setting of COVID infection. CXR is without acute findings. #COVID/Weakness COVID 19 diagnosed on admission. CXR no acute findings. No hypoxia, wheezing, or required supplemental O2 use. Continues noting some improvement today, but does not feel he can care for himself at home at this time. - IS q1hr - No O2 at baseline, CPAP HS - Fall precautions, COVID precautions - DuoNebs prn - PT/OT ordered - Recommended acute rehab on 04/22/25 - Requested RN to walk with pain in hallways using proper COVID precautions and FWW - CM working on placement, however, pt appears to be progressing in strength and function Consider DC to home with self care 04/25 pending walk with nursing in hallway #Afib w/ RVR H/o Afib, on Eliquis and metoprolol; RVR likely due to stress of illness, however, rates normalized with single dose Cardizem 20mg IV in ED. Pt reports he is constant a-fib. HR have been controlled primarily in 70-80s. Noting occasio nal increase to 90's- 100 just prior to metoprolol administration. - Continue home meds - Eliquis, metoprolol - Monitor on tele - Consider Cardizem if rate becomes uncontrolled #Elevated bilirubin Continues to deny abdominal pain. Past labs dating back to 10/2023 show elevated total bilirubin in 1.3-1.6 range. - Bilirubin at 2.2 on 04/22, Down trending at 1.5 today with direct bili at 0.3 - AST/ALT/Alk phos continues WNL - No recent N/V - Recommended recheck with PCP after DC #T2DM H/o DMT2; At home regimen includes Jardiance, degludec 90U HS, lispro SSI, metformin, semaglutide. LAst a1c was 7.3% on 01/2025. No steroids are indicated at this time for COVID infection. BSG has been below 200 without hypoglycemic events. - Continue SSI with target BSG range 105-140mg/dL, CF 25, carb ratio 5 - Continue Lantus 30U BID - BSG ACHS - Adjust regimen as needed - Can resume home regimen upon DC #CKD III - Cr elevated to 1.49 from 1.38 yesterday - Baseline Cr 1.7-1.8 per nephrology on 03/29/25 - Will encourage PO fluids - If Cr continue to rise above baseline, will consider IVF #Gout- Allopurinol - continue #HLD- Atorvastatin - continue #BPH- Finasteride, tamsulosin - continue #HTN- Spironolactone, olmesartan on hold - continue #NIEVES- CPAP HS Dispo: Obs, med/tele VTE prophylaxis: On Eliquis - continue Admission and Anticipated Discharge Date Admission Date: April 21, 2025 Supervising Physician Co-Signing Physician Notes ATTESTATION I also saw the patient and confirmed ross portions of the history and exam. I agree with the impression and plan in the resident documentation, and as sum marized below. Patient is again seated in the bed side chair. He notes continued improvement. Less cough. No dyspnea at rest or with activity in room. EXAM Vital signs stable. 97% on room air. Respirations non labored DATA Labs BUN 23, Cr 1.48 IMPRESSION & PLAN COVID Weakness, improving A-fib with rapid ventricular response upon admission, now resolved Will increase activity and see how he feels If he continues to improve, may be appropriate for discharge to home (without inpatient PT) in the next 24 hours Additional per resident documentation Subjective No acute events over night. This morning, pt report is sitting up in chair and noting continued improvement. He did not work with PT/OT yesterday, but is using walker to get to/from restroom. He does not use assistive devices for ambulation at home. Continues with dry cough and nasal drainage. Denies CP, SOB, abdominal pain, N/V/D, or dizziness. Review of Systems Review of Systems: As per HPI Physical Exam Physical Exam: Gen: NAD HENT: Normocephalic, atraumatic. Trachea midline, no thyromegaly. Intermittent coughing during exam Cardio: A-fib, normal rate no murmurs or clicks. Resp: CTAB, Equal bilateral chest rise, no increased work of breathing. Speaking in full sentences without difficulty maintaining breathing GI: Non distended, soft, non tender, normoactive bowel sounds MSK: Moving all 4 extremities independently Skin: Dry, of normal skin tone Neuro: A& O x 3, normal affect Results & Data Results & Data Vital Signs (Past 12 Hours) Vital Signs Temp Pulse Pulse Resp BP BP Pulse Ox 04/24/25 03:33 37 C 78 20 128/79 97 04/24/25 02:55 70 23 96 04/23/25 23:37 74 21 95 04/23/25 22:00 103 H 04/23/25 22:00 37 C 92 H 18 160/80 H 97 04/23/25 20:00 04/23/25 20:00 37.2 C 110 H 18 128/64 98 O2 Del Method 04/24/25 03:33 CPAP 04/24/25 02:55 04/23/25 23:37 04/23/25 22:00 04/23/25 22:00 Room Air 04/23/25 20:00 Room Air 04/23/25 20:00 Room Air Resident Activity Tracking Resident Involvement: Resident Care Provided Care Provided: Adult Hospital Medicine
[2025-04-24 08:39] LABS: Anion Gap 9.0 (3-11); Blood Urea Nitrogen 32.0 mg/dl (6-23); Calcium 8.6 mg/dl (8.6-10.3); Carbon Dioxide 23.0 mmol/L (21-32); Chloride 107.0 mmol/L (98-107); Creatinine Clr Calc Pharmacy 58.0 ml/min; Glucose 104.0 mg/dl (70-99(Fasting)); Potassium 3.9 mmol/L (3.5-5.1); Sodium 139.0 mmol/L (136-145)
[2025-04-24 12:43] LABS: Bilirubin,Total 1.5 mg/dl (0.2-1.0)
[2025-04-24] MEDS: ESTRADIOL 0.1 MG/24hrs TDSY TD SCH (14:48)
[2025-04-24] MEDS: [UNRECOGNIZED DRUG - OTHER] SCH (14:48)
--- NOTE | 2025-04-25 07:19 | Hospitalist Progress Note ---
Date of Service April 25, 2025 Assessment & Plan (1) Weakness: (2) Elevated bilirubin: (3) Diabetes mellitus, type 2: Plan 74-year-old male PMHx HTN, HLD, BPH, CKD stage IIIb, vitamin D deficiency, T2DM, intermittent A-fib, and NIEVES on CPAP admitted for weakness/deconditioning in setting of COVID infection. CXR is without acute findings. #COVID/Weakness COVID 19 diagnosed on admission. CXR no acute findings. No hypoxia, wheezing, or required supplemental O2 use. Continues noting some improvement today, but does not feel he can care for himself at home at this time. - IS q1hr - No O2 at baseline, CPAP HS - Fall precautions, COVID precautions - DuoNebs prn - PT/OT ordered - Recommended acute rehab on 04/22/25 Pt requesting revaluation on 04/26 for return to home #Afib w/ RVR H/o Afib, on Eliquis and metoprolol; RVR resolved with one dose of Cardizem in ED. Pt reports he is constant a-fib. HR have been controlled primarily in 70- 80s. - Continue home meds - Eliquis, metoprolol - Monitor on tele - Consider Cardizem if rate becomes uncontrolled #Elevated bilirubin Continues to deny abdominal pain. Past labs dating back to 10/2023 show elevated total bilirubin in 1.3-1.6 range. - Bilirubin at 2.2 on 04/22, Down trending at 1.5 with direct bili at 0.3 on 04/24 - AST/ALT/Alk phos normal - No recent N/V - Recommended recheck with PCP after DC #T2DM H/o DMT2; At home regimen includes Jardiance, degludec 90U HS, lispro SSI, metformin, semaglutide. LAst a1c was 7.3% on 01/2025. No steroids are indicated at this time for COVID infection. BSG has been below 200 without hypoglycemic events. - Continue SSI with target BSG range 110-140mg/dL, CF 25, carb ratio 5 - Continue Lantus 30U BID - BSG ACHS - Adjust regimen as needed - Can resume home regimen upon DC #CKD III Baseline Cr 1.7-1.8 per nephrology on 03/29/25 - Cr is 1.48 - Will encourage PO fluids - If Cr continue to rise above baseline, will consider IVF #Gout- Allopurinol - continue #HLD- Atorvastatin - continue #BPH- Finasteride, tamsulosin - continue #HTN- Spironolactone, olmesartan on hold - continue #NIEVES- CPAP HS Dispo: med/tele VTE prophylaxis: On Eliquis - continue Admission and Anticipated Discharge Date Admission Date: April 21, 2025 Supervising Physician Co-Signing Physician Notes ATTESTATION I also saw the patient and confirmed ross portions of the history and exam. I agree with the impression and plan in the resident documentation, and as summarized below. Increased activity yesterday but tells us he still needed assistance getting out of bed. Vital signs stable. 97% on room air. Respirations non labored DATA Labs BUN 32, Cr 1.49 IMPRESSION & PLAN COVID Weakness, improving A-fib with rapid ventricular response upon admission, now resolved Anticipate discharge in AM; he will probably be at the point where he no longer needs inpatient rehab Additional per resident documentation Subjective No acute events over night. This morning, pt he has been walking short distances in the room with his RN and attempting to work on exercise PT recommended last wk. He continues with cough and is noting more production of off-white colored sputum. Pt states he remains feeling weak and not ready to return home on his own yet. Denies CP, SOB, abdominal pain, N/V/D, or dizziness. Review of Systems Review of Systems: As per HPI Physical Exam Physical Exam: Gen: NAD HENT: Normocephalic, atraumatic. Trachea midline, no thyromegaly. Cardio: A-fib, normal rate, no murmurs or clicks. Resp: CTAB, Equal bilateral chest rise, no increased work of breathing. Speaking in full sentences without difficulty maintaining breathing GI: Non distended, soft, non tender, normoactive bowel sounds MSK: Moving all 4 extremities independently Skin: Dry, of normal skin tone Neuro: A& O x 3, normal affect Results & Data Results & Data Vital Signs (Past 12 Hours) Vital Signs Temp Pulse Pulse Resp BP BP Pulse Ox 04/25/25 07:00 62 04/25/25 02:28 35.8 C L 65 18 121/82 97 04/24/25 23:22 76 17 98 04/24/25 22:30 36.9 C 63 18 145/84 H 97 04/24/25 22:00 94 H O2 Del Method FiO2 04/25/25 07:00 04/25/25 02:28 Room Air, CPAP 04/24/25 23:22 21 04/24/25 22:30 Room Air 04/24/25 22:00 Resident Activity Tracking Resident Involvement: Resident Care Provided Care Provided: Adult Hospital Medicine
[2025-04-25 07:29] LABS: Anion Gap 8.0 (3-11); Calcium 8.7 mg/dl (8.6-10.3); Carbon Dioxide 25.0 mmol/L (21-32); Chloride 107.0 mmol/L (98-107); Potassium 4.2 mmol/L (3.5-5.1); Sodium 140.0 mmol/L (136-145)
[2025-04-25 07:35] LABS: Blood Urea Nitrogen 32.0 mg/dl (6-23); Creatinine Clr Calc Pharmacy 57.7 ml/min; Glucose 92.0 mg/dl (70-99(Fasting))
--- NOTE | 2025-04-26 07:01 | Discharge Summary ---
Date of Service April 26, 2025 Admission HPI Per Admitting Provider 74-year-old male PMHx HTN, HLD, BPH, CKD stage IIIb, vitamin D deficiency, T2DM, intermittent A-fib, and NIEVES on CPAP presenting for weakness. Patient states that the night [employer] he started to develop chills but no documented fever. He was seen by his PCP on the day of arrival and tested positive for COVID. His PCP had encouraged him to come to the ED if he started to feel worse. Patient states that he, later in the day, did start to feel worse in terms of his symptoms and states that it was so bad that he could not get out of bed or out of his chair by himself. At 1 point he had felt that he may fall over and have to fell/lowered himself to the ground and was unable to get himself back up. He called EMS who came to help assist the patient. When asked why he lowered himself to the ground, he denies feeling lightheaded or dizzy, just stating that he "ran out of power." He has had a nonproductive cough for the past 1 to 2 days [employer], denies additional URI symptoms. Again denies fevers. Is not short of breath. Denies chest pain, palpitations, abdominal pain, N/V/D/C, numbness/tingling, LUTS, or syncope. Patient does not use oxygen at baseline, but does utilize CPAP at night. He states that he may have possibly been exposed to COVID at tenriism. He does not have a history of documented COVID infection. He has received 4 COVID vaccines in total. ED evaluation reveals CBC without leukocytosis, stable H&H; PT/NR WNL; CMP anion gap 12, creatinine 1.54, glucose 156, bilirubin 2.2; troponin 16.3; lipase 12; COVID-positive, flu/RSV negative; CXR no active disease.; Patient received diltiazem 20 mg IV and acetaminophen 1 g IV in ED. Please see Dr. Alonzo's attestation for adjustments/additions to treatment plan. Principal Diagnosis Covid infection, weakness, A-fib Discharge Exam Gen: NAD HENT: Normocephalic, atraumatic. Trachea midline, no thyromegaly. Cardio: RRR, no murmurs or clicks. Resp: CTAB, Equal bilateral chest rise, no increased work of breathing. Speaking in full sentences without difficulty maintaining breathing GI: Non distended, soft, non tender, normoactive bowel sounds MSK: Moving all 4 extremities independently Skin: Dry, of normal skin tone Neuro: A & O x 3, normal affect, no focal deficit Discharge Data Allergies Allergy/AdvReac Type Severity Reaction Status Date / Time liraglutide [From Saxenda] AdvReac Intermediate Nausea/vomi Verified 04/21/25 20:34 tting Consultations 04/21/25 20:02 ED Decision to Admit Stat Hospital Course (1) Weakness: (2) Elevated bilirubin: (3) Diabetes mellitus, type 2: Plan 74-year-old male PMHx HTN, HLD, BPH, CKD stage IIIb, vitamin D deficiency, T2DM, intermittent A-fib, and NIEVES on CPAP admitted for weakness/deconditioning in setting of COVID infection. CXR is without acute findings. #COVID/Weakness COVID 19 diagnosed on admission. CXR no acute findings. No hypoxia, wheezing, or required supplemental O2 use. Continues noting some improvement today, but does not feel he can care for himself at home at this time. - IS q1hr - No O2 at baseline, CPAP HS - Fall precautions, COVID precautions - DuoNebs prn - PT/OT ordered - Recommended acute rehab on 04/22/25 Pt recovered well over weekend, placement likely better for home inde pendently #Afib w/ RVR H/o Afib, on Eliquis and metoprolol; RVR resolved with one dose of Cardizem in ED. Pt reports he is constant a-fib. HR have been controlled primarily in 70- 80s. - Continue home meds - Eliquis, metoprolol #Elevated bilirubin Continues to deny abdominal pain. Past labs dating back to 10/2023 show elevated total bilirubin in 1.3-1.6 range. - Bilirubin at 2.2 on 04/22, Down trending at 1.5 with direct bili at 0.3 on 04/24 - AST/ALT/Alk phos normal - No recent N/V - Recommended recheck with PCP after DC #T2DM H/o DMT2; At home regimen includes Jardiance, degludec 90U HS, lispro SSI, metformin, semaglutide. LAst a1c was 7.3% on 01/2025. No steroids are indicated at this time for COVID infection. BSG has been below 200 without hypoglycemic events. - Continue SSI with target BSG range 110-140mg/dL, CF 25, carb ratio 5 - Continue Lantus 30U BID - BSG ACHS - Adjust regimen as needed - Can resume home regimen upon DC #CKD III Baseline Cr 1.7-1.8 per nephrology on 03/29/25 - Cr has been below pt's baseline at 1.4- 1.5 - Continue to encourage PO fluids #Gout- Allopurinol - continue #HLD- Atorvastatin - continue #BPH- Finasteride, tamsulosin - continue #HTN- Spironolactone, olmesartan on hold - continue #NIEVES- CPAP HS Total Time Total Time Spent Total Time Spent (In Minutes): <30 Discharge Plan Discharge Items Patient Disposition: Home - Self-Care Reason For Visit: COVID, AFIB RVR Discharge Diagnosis: Covid infection Condition on Discharge: Fair Activity: Resume your previous activity Non-emergency contact: Primary Care Provider Call non-emergency contact if: your symptoms worsen Follow-up/Referrals: Adriana Mathis [Primary Care Provider] - 04/30/25 1:40 pm Diet: Carb Consistent or DM2 and Heart Healthy Addtl Attending Provider Instructions: You were admitted for Covid infection with complications of weakness and A-fib with elevated heart rate. The elevated heart rate was resolved with IV medication. As your body was able to combat the infection, your strength improved. While PT and OT initially recommended rehab placement, during this admission your endurance and balance returned without therapy intervention. You may resume your home medications Please follow up with you PCP in the next 7-10 days Thank you for allowing us to be a part of your care team. Pending Studies at Discharge: No Stand-Alone Forms: My [employer], Smoking Cessation Medications and DC Order Prescriptions: Continued (DME) OneTouch Verio test strips Strip See Rx Instructions .ROUTE .MEDSUPPLY Qty: 400 3RF Rx Instructions: test blood sugars 4x day (DME) pen needle, diabetic [BD Ultra-Fine Short Pen Needle] 31 gauge x 5/16" needle See Rx Instructions .ROUTE .MEDSUPPLY Qty: 500 3RF Rx Instructions: Use with Insulin 5 times a day Rybelsus 14 mg tablet 14 mg PO QAM Qty: 90 3RF Tresiba FlexTouch U-200 200 unit/mL (3 mL) insulin pen 90 unit SUBCUT HS Qty: 45 1RF metformin 850 mg tablet 850 mg PO BID Qty: 180 6RF colchicine 0.6 mg capsule 0.6 mg PO DAILY PRN (Reason: gout flare up) chromium picolinate 500 mcg PO BID olmesartan 5 mg tablet 5 mg PO QAM Hold Instructions: low bp Rx Instructions: ON HOLD (DME) blood-glucose meter [Relevvant Verio Reflect Meter] Misc See Rx Instructions .Route Qty: 1 0RF Rx Instructions: Check blood glucose up to 4 times a day sodium chloride [Mayito 128] 5 % drops 1 drp ophthalmic (eye) HS Metamucil 3.4 gram/5.4 gram powder 1 tbsp PO TID PRN (Reason: ud) Rx Instructions: mix into at least 8 oz of water or juice before administering finasteride 5 mg tablet 5 mg PO QAM Qty: 90 3RF tamsulosin 0.4 mg capsule 0.4 mg PO QAM Qty: 90 3RF estradiol 0.1 mg/24 hr patch semiweekly 1 patch transdermal 2XWK Rx Instructions: CHANGES PATCH SATURDAY & THURSDAYS atorvastatin 10 mg Tablet 10 mg PO HS allopurinol 100 mg Tablet 200 mg PO HS aspirin [Ly Low Dose Aspirin] 81 mg Tablet,Delayed Release (Dr/Ec) 81 mg PO Q2D spironolactone 25 mg Tablet 12.5 mg PO QAM allopurinol 300 mg Tablet 300 mg PO QAM cinnamon bark [Cinnamon] 500 mg Capsule 500 mg PO BID coenzyme Q10 [Co Q-10] 200 mg Capsule 200 mg PO BID alpha lipoic acid 300 mg Capsule 300 mg PO BID magnesium chloride [Mag 64] 64 mg Tablet,Delayed Release (Dr/Ec) 64 mg PO TID zinc 22 mg Tablet 22 mg PO QAM Eliquis 5 mg tablet 5 mg PO BID Qty: 60 0RF metoprolol tartrate 25 mg tablet 25 mg PO BID Qty: 60 0RF cholecalciferol (vitamin D3) [Vitamin D3] 125 mcg (5,000 unit) Tablet 125 mcg PO DAILY insulin lispro [Humalog KwikPen Insulin] 100 unit/mL insulin pen 0 sliding scale dose subcut TIDM MDD 220 U/day Rx Instructions: 30-70 U subcutaneously three times a day with meals; No Action empagliflozin 25 mg tablet 25 mg PO QAM Qty: 90 3RF Discharge Orders: Discharge Order (Routine); Ordered 04/26/25 Ordered By: Lesley Simpson Admission Data Admit Date/Time: 04/21/25 21:36 Attending Provider: Hiram Alaniz Admit Provider: Alicja Alonzo Primary Care Provider: Adriana Mathis Other Providers: Alicja Alonzo; Gee Blake Other Interventions: Discharge Summary Assessment (RN) Last Done: 04/26/25 09:40 Supervising Physician Co-Signing Physician Notes I personally examined the patient and verified all ross points of history and exam, discussed case, and agree with decision making with Dr Simpson Feeling better. Up and around under his own power. Feels that he would be safe at home. PT sees and also feels that home is appropriate at this point. Vitals noted, in general pt is awake and alert pleasant no distress. HEENT normocephalic atraumatic mucous membranes moist. Breathing unlabored no accessory muscle use good effort. Skin without rashes pallor or icterus. Neuro without focal deficits. IMPRESSION & PLAN COVID Weakness, improving A-fib with rapid ventricular response upon admission, now resolved Safe/stable for home. Outpatient follow-up. Additional per resident documentation Resident Activity Tracking Resident Involvement: Resident Care Provided Care Provided: Adult Hospital Medicine
[2025-04-26 08:12] VITALS: BP 130/87; PULSE 69; RESP 16; TEMP 98.6
[2025-04-26 10:01] VITALS: O2SAT 97
--- NOTE | 2025-04-26 14:06 | Billing Data ---
Date of Service April 26, 2025 Coding Level of Care Code 45815 IN/OBS DISCH 30 MIN/LESS
== END 2025-04-26 11:16 | disposition home or self-care (01) | DRG 178 ==
LOC: ED 17:57 → SUATTDRO 21:36 → 2N 21:36